=== PATIENT | female | born 1995 | race Caucasian/White ===

== ENCOUNTER 2018-06-11 19:31 | Emergency (ER) | payer OTHER | END 2018-06-11 23:15 | disposition home or self-care (01) | LOC: M ED 19:31 | DX: O26.891 Other specified pregnancy related conditions, first trimester (principal); M54.41 Lumbago with sciatica, right side; Z3A.10 10 weeks gestation of pregnancy; Z88.0 Allergy status to penicillin | CPT/HCPCS: 99283 ==